=== PATIENT | male | born 2000 | race African-American/Black ===

== ENCOUNTER 2022-09-28 13:54 | Emergency (ER) | payer OTHER ==
[~2022-09-28] VITALS: Ht 188 cm; Wt 76.6 kg
[2022-09-28] MEDS ORDERED: NS 1,000 ML IV ONE ×3 (16:45→18:30)
[2022-09-28] MEDS ORDERED: KETOROLAC 30 MG/ML 1ML VIAL IV ONE (16:45)
[2022-09-28 17:16] LABS: BASO % 0.4 % (0.0-1.0); EOS # 0.1 10^3/uL (0.0-0.5); EOS % 1.2 % (0.0-3.0); HEMATOCRIT 46.1 % (42.0-52.0); HEMOGLOBIN 15.6 g/dl (13.5-17.5); LYMPH % 41.2 % (24.0-44.0); MEAN CORPUSCULAR HEMOGLOBIN 30.2 pg (27.0-33.0); MEAN CORPUSCULAR HGB CONC 33.8 g/dl (32.0-36.5); MEAN CORPUSCULAR VOLUME 89.3 fl (80.0-96.0); MONO # 0.6 10^3/uL (0.0-0.8); MONO % 12.4 % (2.0-8.0); NEUTROPHILS # 2.2 10^3/uL (1.5-8.5); NEUTROPHILS % 44.6 % (36.0-66.0); PLATELET COUNT, AUTOMATED 236 10^3/uL (150-450); RED BLOOD COUNT 5.16 10^6/uL (4.30-6.10); WHITE BLOOD COUNT 4.9 10^3/uL (4.0-10.0)
[2022-09-28 17:41] LABS: CK-MB VALUE MASS 2.1 NG/ML (<3.6)
[2022-09-28 18:03] LABS: MB/CK RELATIVE INDEX 0.11 (< OR =4)
[2022-09-28 21:45] VITALS: BP 100/61
== END 2022-09-28 21:45 | disposition home or self-care (01) ==
LOC: M ED 13:54
DX: R07.89 Other chest pain (principal); M62.82 Rhabdomyolysis
CPT/HCPCS: 71045; 80047; 82550; 82553; 83880; 84484; 85025; 85379; 93005; 96361; 96374; 99285; J1885

== ENCOUNTER → 2022-09-30 | Outpatient (CLI) | payer OTHER ==
[2022-09-30 14:01] LABS: BLOOD UREA NITROGEN 11 MG/DL (9-23); CARBON DIOXIDE LEVEL 31 MMOL/L (20-31); CHLORIDE LEVEL 106 MMOL/L (98-107); CREATININE FOR GFR 0.85 MG/DL (0.70-1.30); GLOMERULAR FILTRATION RATE > 60.0 (>60); GLUCOSE, FASTING 95 MG/DL (60-100); POTASSIUM SERUM 3.9 MMOL/L (3.5-5.1); SODIUM LEVEL 140 MMOL/L (136-145)
[2022-09-30 14:11] LABS: CPK CREATINE PHOSPHOKINASE 1201 U/L (46-171)
== END ==
LOC: M LAB 13:07
PROVIDERS: ATTEND Physician Assistant
DX: M62.82 Rhabdomyolysis (principal)

== ENCOUNTER → 2023-05-19 | Outpatient (CLI) | payer OTHER | LOC: M WUC 11:11 | PROVIDERS: ATTEND Nurse Practitioner Family | DX: M54.50 Low back pain, unspecified (principal) ==

== ENCOUNTER 2023-10-06 09:27 | Emergency (ER) | payer OTHER ==
[~2023-10-06] VITALS: Ht 188 cm; Wt 79.0 kg
[2023-10-06 09:28] VITALS: BP 124/74; TEMP 97.8; O2SAT 99
== END 2023-10-06 11:05 | disposition left against medical advice (07) ==
LOC: M ED 09:27
DX: Z53.21 Procedure and treatment not carried out due to patient leaving prior to being seen by health care provider (principal)

== ENCOUNTER → 2024-04-06 | Outpatient (REF) | payer OTHER ==
[2024-04-06 12:41] LABS: SEMEN APPEARANCE OPAQUE (OPAQUE); SEMEN VISCOSITY LIQUID (LIQUID); SEMEN VOLUME 2.1 ml (2.0-5.0); SEMEN pH 8.5 (7.0-8.0); WBC CONCENTRATION <=1 M/ml (<=1 M/ml)
== END ==
LOC: M LAB REF 12:11
PROVIDERS: ATTEND Physician Assistant
DX: Z31.41 Encounter for fertility testing (principal)

== ENCOUNTER → 2024-04-18 | Outpatient (REF) | payer OTHER ==
[2024-04-18 10:36] LABS: SEMEN APPEARANCE OPAQUE (OPAQUE); SEMEN VISCOSITY LIQUID (LIQUID); SEMEN VOLUME 2.1 ml (2.0-5.0); SEMEN pH 8.5 (7.0-8.0); SPERM CONCENTRATION 26.2 M/ml (>=15.0); WBC CONCENTRATION <=1 M/ml (<=1 M/ml)
== END ==
LOC: M LAB REF 10:31
PROVIDERS: ATTEND Physician Assistant
DX: Z31.41 Encounter for fertility testing (principal)